=== PATIENT | male | born 1980 | race Caucasian/White ===

== ENCOUNTER 2023-09-22 15:49 | Emergency (ER) | payer OTHER ==
[~2023-09-22] VITALS: Ht 182.9 cm; Wt 88.0 kg
[2023-09-22 16:04] VITALS: TEMP 97.9; O2SAT 99
[2023-09-22] MEDS ORDERED: TETANUS, DIPHTHERIA, PERTUSSIS VAC/PF 0.5ML (>10YR OLD) IM ONE (17:30)
[2023-09-22] MEDS ORDERED: BACITRACIN ZINC OINT UDPKT TOP ONE (17:30)
[2023-09-22 17:37] VITALS: BP 113/68; PULSE 82; RESP 16
[2023-09-22] MEDS ORDERED: IBUPROFEN 600MG TABLET PO STA (17:37)
[2023-09-22] MEDS ORDERED: BO1 TP (18:18)
[2023-09-22] MEDS ORDERED: AMOX1TAB16 PO (18:18)
[2023-09-22] MEDS ORDERED: IBUP-2029 PO (18:18)
== END 2023-09-22 19:15 | disposition home or self-care (01) ==
LOC: ER 15:49
DX: S81.851A Open bite, right lower leg, initial encounter (principal); W54.0XXA Bitten by dog, initial encounter; Y93.89 Activity, other specified; Y92.89 Other specified places as the place of occurrence of the external cause; Y99.8 Other external cause status
CPT/HCPCS: 73590; 90471; 90715; 99283